=== PATIENT | female | born 1930 | race Caucasian/White ===

== ENCOUNTER 2017-06-24 19:09 | Emergency (ER) | payer OTHER ==
[~2017-06-24] VITALS: Ht 162.6 cm; Wt 85.7 kg
[2017-06-24] MEDS ORDERED: ZOLOFT25 MG (19:24)
[2017-06-24] MEDS ORDERED: CLONAZEPAM1 MG (19:25)
== END 2017-06-25 13:42 | disposition home or self-care (01) ==
LOC: ER 19:09
DX: J45.998 Other asthma (principal); J41.0 Simple chronic bronchitis; I10 Essential (primary) hypertension; J98.11 Atelectasis